=== PATIENT | male | born 1985 | race Caucasian/White ===

== ENCOUNTER 2016-11-28 13:55 | Emergency (ER) | payer MEDICAID ==
[~2016-11-28] VITALS: Ht 175.3 cm; Wt 90.3 kg
[2016-11-28 13:59] VITALS: BP 130/82
== END 2016-11-28 14:44 | disposition home or self-care (01) ==
LOC: ED 14:35
DX: K02.9 Dental caries, unspecified (principal)
CPT/HCPCS: 99283